=== PATIENT | male | born 1990 | race African-American/Black ===

== ENCOUNTER 2023-02-06 10:24 | Emergency (ER) | payer OTHER, SELFPAY ==
[2023-02-06 10:27] VITALS: BP 120/72; PULSE 88; RESP 20; TEMP 37.2; O2SAT 99
[2023-02-06] MEDS: Breeza Beverage 473 ML BTL 946 ML PO ×2 (10:49→14:51)
[2023-02-06] MEDS: Omnipaque 350 MG/ML 50 ML BTL PO ×2 (10:50→14:52)
--- NOTE | 2023-02-06 11:00 | DI.CT_ITS ---
Exam(s) CT ABDOMEN PELVIS WO CT ABDOMEN PELVIS W EXAM: CT ABDOMEN PELVIS W CLINICAL HISTORY: abd pain , no bm, vomitting. TECHNIQUE: Imaging Protocol: Axial computed tomography images with coronal and sagittal reformatted images were created and reviewed CONTRAST MATERIAL: Intravenous: Omnipaque-350 100cc Oral: Yes. Oral contrast was administered for bowel opacification. COMPARISON: CT CT ABDOMEN PELVIS WO from 02/06/2023 FINDINGS: VISUALIZED LUNG BASES: No nodules nor pleural effusions evident. ABDOMEN: There is no ascites. LIVER: There are no focal hepatic lesions evident. No dilated intrahepatic ducts. GALLBLADDER/BILIARY: No obvious gallbladder pathology. CBD is not dilated. PANCREAS: Partially obscured by adjacent small bowel loops. No evidence of obvious pancreatic mass n or dilatation of the pancreatic duct. No peripancreatic fluid collections. SPLEEN: Spleen is not enlarged. No obvious intrasplenic lesions. Splenic and portal veins are paten t. ADRENALS: There are no significant adrenal masses. KIDNEYS:No cysts evident. No solid renal masses. No calculi nor hydronephrosis.. ABDOMINAL AORTA: Abdominal aorta is not enlarged. LYMPH NODES:There is no retroperitoneal nor paraaortic adenopathy. ABDOMINAL WALL: No evidence of significant anterior abdominal wall nor inguinal hernia. GI: There is no evidence of bowel obstruction, free air, nor abscess. PELVIS: GI: No evidence of appendicitis.There is a small area in the sigmoid which appears contracted and dif ficult to evaluate.There is abundant fecal material in the colon above this level. LYMPH NODES: There is no intrapelvic nor inguinal adenopathy. REPRODUCTIVE: Prostate size is normal. URINARY BLADDER: No calculi nor obvious masses evident OSSEOUS: No fractures and no significant osseous lesions. IMPRESSION: 1. There is no evidence of small-bowel obstruction, free air, nor abscess. No evidence of appendiciti s. No diverticulitis.. 2. There is abundant fecal material in the colon. There appears to be area of subtle abnormal mural t hickening of a bowel loop in the lower central abdomen, difficult to determine if this is the upper r ectosigmoid or an adjacent small bowel loop. There is no evidence of obvious small bowel obstruction. There is, however, abundant fecal material in the colon above this level and a paucity of fecal mate rial in the rectosigmoid below this level. Recommend follow-up colonoscopy and small-bowel follow-thr ough barium examination. Discussed by phone with ER provider. RADIATION DOSE DELIVERED: 579.03mGy.cm Total DLP DATA REPOSITORY: All CT scans at this facility are submitted to the National Radiology Data Registry (NRDR) Dose Index Registry (DIR) with the [employer] (A[employer]). RADIATION OPTIMIZATION: All CT scans at this facility use at least one of these dose optimization te chniques: automated exposure control; mA and/or kV adjustment per patient size (includes targeted exa ms where dose is matched to clinical indication); or iterative reconstruction.
[2023-02-06 11:05] LABS: Abs Immature Grans 0.01 10^3/uL (0.0-0.06); Absolute Basophil Count 0.02 10^3/uL (0.0-0.2); Absolute Eosinophil Count 0.03 10^3/uL (0.0-0.7); Absolute Lymphocyte Count 1.94 10^3/uL (1.2-3.4); Absolute Monocyte Count 0.43 10^3/uL (0.1-0.8); Absolute Neutrophil Count 1.76 10^3/uL (1.2-6.7); Basophils % 0.5; Eosinophils % 0.7; HCT 40.8 % (40.0-50.0); HGB 13.8 g/dL (13.5-17.5); Immature Grans % 0.2; Lymphocytes % 46.3; MCH 28.8 pg (27.0-33.0); MCHC 33.8 % (32.0-36.0); MCV 85 fL (80-95); MPV 9.9 fL (8.0-11.0); Monocytes % 10.3; Platelet Count 189 10^3/uL (130-400); RBC 4.79 10^6/uL (4.36-5.78); RDW 12.3 % (11.8-14.1); RDW-SD 38.3 fL; WBC 4.19 10^3/uL (4.4-10.8)
[2023-02-06] MEDS: Normal Saline 1,000 ML 1000 ML IV (11:09)
[2023-02-06] MEDS: Ondansetron 4 MG/2 ML VIAL IVP ×2 (11:09→14:29)
[2023-02-06] MEDS: Ketorolac 15 MG/ML VIAL IVP (11:09)
[2023-02-06 11:20] LABS: ALT 26 U/L (16-63); AST 16 U/L (15-37); Albumin 4.5 g/dL (3.4-5.0); Alkaline Phosphatase 44 U/L (46-116); Anion Gap 9.9 mmol/L (3-11); BUN 8 mg/dL (7-18); Bilirubin, Total 1.2 mg/dL (0.2-1.0); CO2 29.1 mmol/L (21.0-32.0); Calcium 9.3 mg/dL (8.5-10.1); Chloride 98 mmol/L (98-107); Estimated GFR 101.28 (mL/min/1.73m2); Glucose 124 mg/dL (74-106); Lipase 13 U/L (16-77); Potassium 3.7 mmol/L (3.5-5.1); Sodium 137 mmol/L (136-145); Total Protein 8.4 g/dL (6.4-8.2)
[2023-02-06 11:24] LABS: Bilirubin Negative (Negative); Blood Negative (Negative); Clarity Clear (Clear); Glucose Negative (Negative); Ketones 40 mg/dL (Negative); Leukocyte Esterase Negative (Negative); Nitrite Negative (Negative); pH 6.5 (5-8)
--- NOTE | 2023-02-06 11:32 | ED.GENADUL_ITS ---
Discharge Plan Disposition Patient Disposition: Home Condition: Stable Discharge Details Clinical Impression: Constipation, Abdominal pain Primary Care Provider: Kathy,Local ED Provider: Goldie Ribeiro Home Meds and New Rx's Prescriptions: New polyethylene glycol 3350 [Miralax] 17 gram/dose powder 17 g PO DAILY PRN (Reason: constipation) Qty: 119 0RF Rx Instructions: Mix 1 packet or 17 g in 8 ounces of fluid once daily as needed until stool production. Please stop if diarrhea occurs. No Action penicillin V potassium 500 MG tablet 500 mg PO QID Qty: 28 0RF ibuprofen 800 MG tablet 800 mg PO TID Qty: 21 0RF insulin lispro [Humalog U-100 Insulin] 100 unit/mL solution See Rx Instructions .ROUTE .COMPLEX Rx Instructions: subcutaneously via insulin pump Discharge Instructions Instructions: Constipation (ED), Abdominal Pain (ED) Additional Instructions: CT shows constipation. You do have some thickening of the intestinal wall which can be a sign of a stomach virus. Please take the medication as directed. Increase oral fluids. You may also try high-fiber foods such as prunes. Please take Tylenol or Ibuprofen with food every 4-6 hours as needed for pain and swelling. Follow up with primary care provider in 3-5 days. Return to ED sooner if any worsening or concerns. Increase oral fluids. Discharge Data Discharge Date/Time-TO BE ENTERED AT DEPARTURE: 02/06/23 17:53 Medical Decision Making <Truman Meza NP - Last Filed: 02/08/23 15:48> Patient presenting to the emergency department for chief complaint of abdominal pain, constipation, nausea vomiting. Patient does report previous history is of constipation in the past but never with nausea vomiting and belly pain. Patient states that his blood sugars have been well controlled as he has a diagnosis of type 1 diabetes otherwise has no other past medical history and takes no other medications. Physical exam shows soft abdomen with hypoactive bowel sounds, there is tenderness to the epigastrium and left upper quadrant, otherwise unremarkable exam. I am concerned given that patient is having nausea and vomiting with abdominal pain that there could be more than simple constipation. We will check patient's labs and perform CT imaging. Patient is very thin so we will perform with contrast. Pending results we will give patient Zofran, ketorolac, and IV fluids Review of patient's labs show an unremarkable CBC, normal lactate, CMP does show slight elevation of glucose 124, bilirubin is slightly elevated at 1.2, low alk phos, high protein and low lipase. Patient still pending urinalysis and CT scan. Based on these nondiagnostic lab results though at this time I do not feel that any further interventions are needed. Urinalysis was reviewed and did show some urine ketones and urobilinogen otherwise unremarkable. Spoke to radiologist in regards to CT imaging which does show significant amount of stool but radiologist was concerned due to not being able to fully visualize contrast in the sigmoid aspect of the colon. He requested patient to have more oral contrast and repeat scan. Patient is agreeable to this. Patient did state some increased nausea so more Zofran was ordered. This spoke to radiologist who did state that there does seem to be still a sigmoid abnormality in the upper portion but does feel that this is can be followed up on outpatient from a surgical perspective. We will give patient mag citrate and see if that helps resolve some of his constipation otherwise will consider enema. Patient signed out to Ailyn Ribeiro NP for reassessment post mag citrate and enema if needed. Lab Data Lab results reviewed: Yes I reviewed the patient's lab results. <Goldie Ribeiro NP - Last Filed: 02/06/23 17:49> Patient presenting to the emergency department for chief complaint of abdominal pain, constipation, nausea vomiting. Patient does report previous history is of constipation in the past but never with nausea vomiting and belly pain. Patient states that his blood sugars have been well controlled as he has a diagnosis of type 1 diabetes otherwise has no other past medical history and takes no other medications. Physical exam shows soft abdomen with hypoactive bowel sounds, there is tenderness to the epigastrium and left upper quadrant, otherwise unremarkable exam. I am concerned given that patient is having nausea and vomiting with abdominal pain that there could be more than simple constipation. We will check patient's labs and perform CT imaging. Patient is very thin so we will perform with contrast. Pending results we will give patient Zofran, ketorolac, and IV fluids Review of patient's labs show an unremarkable CBC, normal lactate, CMP does show slight elevation of glucose 124, bilirubin is slightly elevated at 1.2, low alk phos, high protein and low lipase. Patient still pending urinalysis and CT scan. Based on these nondiagnostic lab results though at this time I do not feel that any further interventions are needed. Urinalysis was reviewed and did show some urine ketones and urobilinogen otherwise unremarkable. Spoke to radiologist in regards to CT imaging which does show significant amount of stool but radiologist was concerned due to not being able to fully visualize contrast in the sigmoid aspect of the colon. He requested patient to have more oral contrast and repeat scan. Patient is agreeable to this. Patient did state some increased nausea so more Zofran was ordered. This spoke to radiologist who did state that there does seem to be still a sigmoid abnormality in the upper portion but does feel that this is can be followed up on outpatient from a surgical perspective. We will give patient mag citrate and see if that helps resolve some of his constipation otherwise will consider enema. Patient signed out to Ailyn Ribeiro NP for reassessment post mag citrate and enema if needed. 1615: SJ: Care assumed from provider (Tal Meza NP) Please see their initial HPI, PE, and documentation. Discussed patient details and case and pending workup and disposition. Patient is hemodynamically stable, and alert and oriented. At the time of signout awaiting results from magnesium citrate, and disposition. If mag citrate is unsuccessful we will consider an enema. 1705: No bowel production with mag citrate, will give a soapsuds enema. 1749: On patient reevaluation he reports he has no more abdominal pain. I did discuss CT results with him and home care he is here for a week has a PCP in [facility]. I did encourage him to follow-up if he or return if he has any worsening pain. He verbalizes understanding. This text was generated using [employer] system, please disregard any oddities of phrase or misspellings. Medical Records Medical records reviewed: Yes I reviewed the patient's medical records. Imaging Data Radiologic Study: Imaging: CT Scan Radiologist's impression: Laboratory Tests Range/Units 02/06/23 02/06/23 02/06/23 10:53 10:53 11:00 WBC (4.4-10.8) 10^3/uL 4.19 L RBC (4.36-5.78) 10^6/uL 4.79 Hgb (13.5-17.5) g/dL 13.8 Hct (40.0-50.0) % 40.8 MCV (80-95) fL 85 MCH (27.0-33.0) pg 28.8 MCHC (32.0-36.0) % 33.8 RDW (11.8-14.1) % 12.3 Plt Count (130-400) 10^3/uL 189 MPV (8.0-11.0) fL 9.9 Immature Gran % 0.2 Neutrophils % 42.0 Lymphocytes % 46.3 Monocytes % 10.3 Eosinophils % 0.7 Basophils % 0.5 Nucleated RBC % (0.0-0.3) % 0.0 Absolute Neutrophils (1.2-6.7) 10^3/uL 1.76 Absolute Lymphocytes (1.2-3.4) 10^3/uL 1.94 Absolute Monocytes (0.1-0.8) 10^3/uL 0.43 Absolute Eosinophils (0.0-0.7) 10^3/uL 0.03 Absolute Basophils (0.0-0.2) 10^3/uL 0.02 VBG Lactate (0.9-1.7) MMOL/l 1.0 Sodium (136-145) mmol/L 137 Potassium (3.5-5.1) mmol/L 3.7 Chloride (98-107) mmol/L 98 Carbon Dioxide (21.0-32.0) mmol/L 29.1 Anion Gap (3-11) mmol/L 9.9 BUN (7-18) mg/dL 8 Creatinine (0.70-1.30) mg/dL 1.0 Est GFR (CKD-EPI 2020) (mL/min/1.73m2) 101.28 Glucose (74-106) mg/dL 124 H Calcium (8.5-10.1) mg/dL 9.3 Magnesium (1.8-2.4) mg/dL 2.0 Total Bilirubin (0.2-1.0) mg/dL 1.2 H AST (15-37) U/L 16 ALT (16-63) U/L 26 Alkaline Phosphatase (46-116) U/L 44 L Total Protein (6.4-8.2) g/dL 8.4 H Albumin (3.4-5.0) g/dL 4.5 Lipase (16-77) U/L 13 L Urine Color (Yellow) Urine Clarity (Clear) Urine pH (5-8) Ur Specific [place] (1.005-1.025) Urine Protein (Negative) mg/dL Urine Ketones (Negative) mg/dL Urine Blood (Negative) Urine Nitrite (Negative) Urine Bilirubin (Negative) Urine Urobilinogen (Up to 0.2) mg/dL Ur Leukocyte Esterase (Negative) Urine Glucose (Negative) mg/dL Range/Units 02/06/23 11:06 WBC (4.4-10.8) 10^3/uL RBC (4.36-5.78) 10^6/uL Hgb (13.5-17.5) g/dL Hct (40.0-50.0) % MCV (80-95) fL MCH (27.0-33.0) pg MCHC (32.0-36.0) % RDW (11.8-14.1) % Plt Count (130-400) 10^3/uL MPV (8.0-11.0) fL Immature Gran % Neutrophils % Lymphocytes % Monocytes % Eosinophils % Basophils % Nucleated RBC % (0.0-0.3) % Absolute Neutrophils (1.2-6.7) 10^3/uL Absolute Lymphocytes (1.2-3.4) 10^3/uL Absolute Monocytes (0.1-0.8) 10^3/uL Absolute Eosinophils (0.0-0.7) 10^3/uL Absolute Basophils (0.0-0.2) 10^3/uL VBG Lactate (0.9-1.7) MMOL/l Sodium (136-145) mmol/L Potassium (3.5-5.1) mmol/L Chloride (98-107) mmol/L Carbon Dioxide (21.0-32.0) mmol/L Anion Gap (3-11) mmol/L BUN (7-18) mg/dL Creatinine (0.70-1.30) mg/dL Est GFR (CKD-EPI 2020) (mL/min/1.73m2) Glucose (74-106) mg/dL Calcium (8.5-10.1) mg/dL Magnesium (1.8-2.4) mg/dL Total Bilirubin (0.2-1.0) mg/dL AST (15-37) U/L ALT (16-63) U/L Alkaline Phosphatase (46-116) U/L Total Protein (6.4-8.2) g/dL Albumin (3.4-5.0) g/dL Lipase (16-77) U/L Urine Color (Yellow) Yellow Urine Clarity (Clear) Clear Urine pH (5-8) 6.5 Ur Specific [place] (1.005-1.025) 1.010 Urine Protein (Negative) mg/dL Negative Urine Ketones (Negative) mg/dL 40 H Urine Blood (Negative) Negative Urine Nitrite (Negative) Negative Urine Bilirubin (Negative) Negative Urine Urobilinogen (Up to 0.2) mg/dL 4.0 H Ur Leukocyte Esterase (Negative) Negative Urine Glucose (Negative) mg/dL Negative Lab Data Lab results reviewed: Yes I reviewed the patient's lab results. Labs: Laboratory Tests Range/Units 02/06/23 02/06/23 02/06/23 10:53 10:53 11:00 WBC (4.4-10.8) 10^3/uL 4.19 L RBC (4.36-5.78) 10^6/uL 4.79 Hgb (13.5-17.5) g/dL 13.8 Hct (40.0-50.0) % 40.8 MCV (80-95) fL 85 MCH (27.0-33.0) pg 28.8 MCHC (32.0-36.0) % 33.8 RDW (11.8-14.1) % 12.3 Plt Count (130-400) 10^3/uL 189 MPV (8.0-11.0) fL 9.9 Immature Gran % 0.2 Neutrophils % 42.0 Lymphocytes % 46.3 Monocytes % 10.3 Eosinophils % 0.7 Basophils % 0.5 Nucleated RBC % (0.0-0.3) % 0.0 Absolute Neutrophils (1.2-6.7) 10^3/uL 1.76 Absolute Lymphocytes (1.2-3.4) 10^3/uL 1.94 Absolute Monocytes (0.1-0.8) 10^3/uL 0.43 Absolute Eosinophils (0.0-0.7) 10^3/uL 0.03 Absolute Basophils (0.0-0.2) 10^3/uL 0.02 VBG Lactate (0.9-1.7) MMOL/l 1.0 Sodium (136-145) mmol/L 137 Potassium (3.5-5.1) mmol/L 3.7 Chloride (98-107) mmol/L 98 Carbon Dioxide (21.0-32.0) mmol/L 29.1 Anion Gap (3-11) mmol/L 9.9 BUN (7-18) mg/dL 8 Creatinine (0.70-1.30) mg/dL 1.0 Est GFR (CKD-EPI 2020) (mL/min/1.73m2) 101.28 Glucose (74-106) mg/dL 124 H Calcium (8.5-10.1) mg/dL 9.3 Magnesium (1.8-2.4) mg/dL 2.0 Total Bilirubin (0.2-1.0) mg/dL 1.2 H AST (15-37) U/L 16 ALT (16-63) U/L 26 Alkaline Phosphatase (46-116) U/L 44 L Total Protein (6.4-8.2) g/dL 8.4 H Albumin (3.4-5.0) g/dL 4.5 Lipase (16-77) U/L 13 L Urine Color (Yellow) Urine Clarity (Clear) Urine pH (5-8) Ur Specific [place] (1.005-1.025) Urine Protein (Negative) mg/dL Urine Ketones (Negative) mg/dL Urine Blood (Negative) Urine Nitrite (Negative) Urine Bilirubin (Negative) Urine Urobilinogen (Up to 0.2) mg/dL Ur Leukocyte Esterase (Negative) Urine Glucose (Negative) mg/dL Range/Units 02/06/23 11:06 WBC (4.4-10.8) 10^3/uL RBC (4.36-5.78) 10^6/uL Hgb (13.5-17.5) g/dL Hct (40.0-50.0) % MCV (80-95) fL MCH (27.0-33.0) pg MCHC (32.0-36.0) % RDW (11.8-14.1) % Plt Count (130-400) 10^3/uL MPV (8.0-11.0) fL Immature Gran % Neutrophils % Lymphocytes % Monocytes % Eosinophils % Basophils % Nucleated RBC % (0.0-0.3) % Absolute Neutrophils (1.2-6.7) 10^3/uL Absolute Lymphocytes (1.2-3.4) 10^3/uL Absolute Monocytes (0.1-0.8) 10^3/uL Absolute Eosinophils (0.0-0.7) 10^3/uL Absolute Basophils (0.0-0.2) 10^3/uL VBG Lactate (0.9-1.7) MMOL/l Sodium (136-145) mmol/L Potassium (3.5-5.1) mmol/L Chloride (98-107) mmol/L Carbon Dioxide (21.0-32.0) mmol/L Anion Gap (3-11) mmol/L BUN (7-18) mg/dL Creatinine (0.70-1.30) mg/dL Est GFR (CKD-EPI 2020) (mL/min/1.73m2) Glucose (74-106) mg/dL Calcium (8.5-10.1) mg/dL Magnesium (1.8-2.4) mg/dL Total Bilirubin (0.2-1.0) mg/dL AST (15-37) U/L ALT (16-63) U/L Alkaline Phosphatase (46-116) U/L Total Protein (6.4-8.2) g/dL Albumin (3.4-5.0) g/dL Lipase (16-77) U/L Urine Color (Yellow) Yellow Urine Clarity (Clear) Clear Urine pH (5-8) 6.5 Ur Specific [place] (1.005-1.025) 1.010 Urine Protein (Negative) mg/dL Negative Urine Ketones (Negative) mg/dL 40 H Urine Blood (Negative) Negative Urine Nitrite (Negative) Negative Urine Bilirubin (Negative) Negative Urine Urobilinogen (Up to 0.2) mg/dL 4.0 H Ur Leukocyte Esterase (Negative) Negative Urine Glucose (Negative) mg/dL Negative HPI <Truman Meza NP - Last Filed: 02/08/23 15:48> General Mode of arrival: ambulatory . Date/Time Provider Initiated Documentation: 02/06/23 10:34 . Limitations to Documentation: no limitations . Information obtained by: patient and RN notes reviewed . History of Present Illness 32 year old M presents to the emergency department with the chief complaint of Abdominal pain, constipation, nausea vomiting, described as moderate and similar to prior episodes, Quality is described as aching, and is localized to the abdomen. Patient started experiencing this day(s) (5) and it has been constant. No relieving factors improve symptom(s), No exacerbating factors reported . Patient did receive the following treatments prior to arrival, other ([id number] MiraLAX) Related Data Home Medications Medication Instructions Recorded Confirmed ibuprofen 800 mg tablet 800 mg PO TID #21 tabs 02/12/15 penicillin V potassium 500 mg 500 mg PO QID ##28 02/12/15 tablet insulin lispro 100 unit/mL See Rx Instructions .Route .COMPLEX 02/06/23 02/06/23 subcutaneous solution (Humalog U-100 Insulin) polyethylene glycol 3350 17 17 g PO DAILY PRN constipation 02/06/23 gram/dose oral powder (Miralax) #119 grams Previous Rx's Medication Instructions Recorded ibuprofen 800 mg tablet 800 mg PO TID #21 tabs 02/12/15 penicillin V potassium 500 mg 500 mg PO QID ##28 02/12/15 tablet polyethylene glycol 3350 17 17 g PO DAILY PRN constipation 02/06/23 gram/dose oral powder (Miralax) #119 grams Allergies Allergy/AdvReac Type Severity Reaction Status Date / Time No Known Allergies Allergy Unverified 02/06/23 10:31 General Stated Complaint: Abd Prob ROBBY: 3 Review of Systems <Truman Meza NP - Last Filed: 02/08/23 15:48> Constitutional Constitutional: Denies chills, Denies fever(s), Denies headache(s) and Reports malaise ENT Ears, Nose, Mouth, and Throat: Denies headache(s) Cardiovascular Cardiovascular: Denies chest pain and Denies dyspnea Respiratory Respiratory: Denies cough and Denies dyspnea Gastrointestinal Gastrointestinal: Reports as per HPI, Reports abdominal pain, Denies melena, Denies change in bowel habits, Reports constipation, Denies diarrhea, Reports nausea and Reports vomiting Genitourinary Genitourinary: Denies hematuria, Denies difficulty urinating, Denies urinary hesitancy, Denies urinary incontinence and Denies urinary urgency Integumentary/Breasts Skin/Breast: Denies rash Neurologic Neurologic: Denies headache(s) PFSH <Truman Meza NP - Last Filed: 02/08/23 15:48> All Active Problems (Updated 02/06/23 @ 17:36 by Goldie Ribeiro NP) Constipation (Acute) Abdominal pain (Acute) Type 1 diabetes (Acute) Social History Smoking/Tobacco Use Status: Current-Occasional Smoking risk assessment performed?: Yes Alcohol Intake: current Alcohol Intake frequency: a few times a week Alcohol type: wine Drug use: Never Substance use type: marijuana Housing: other Do you feel safe at home: Yes Do you feel safe in your relationship?: Yes Additional Social history: 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 Exam <Truman Meza NP - Last Filed: 02/08/23 15:48> Const General: cooperative Orientation: alert, awake and oriented x3 Resp Effort & Inspection: normal respiratory effort and able to speak in complete sentences Auscultation: clear to auscultation bilaterally Cardio Rate: regular rate Rhythm: regular rhythm Heart Sounds: S1 normal and S2 normal GI Palpation: soft, no hepatosplenomegaly, not firm, no guarding, no masses, no pulsatile masses, not rigid, no splenomegaly and tender in the epigastrum and in the LUQ Auscultation: hypoactive bowel sounds Back/Spine/Pelvis Back: no CVA tenderness Neuro General: patient alert, patient awake, patient oriented x3, gait normal and moves all extremities Course <Truman Meza NP - Last Filed: 02/08/23 15:48> Vital Signs Vital signs: Vital Signs Temperature 37.2 C 02/06/23 10:27 Pulse 88 02/06/23 10:27 Respiratory Rate 20 02/06/23 10:27 Blood Pressure 120/72 02/06/23 10:27 Pulse Oximetry 99 02/06/23 10:27 Temperature 37.2 C 02/06/23 10:27 Temperature Source Skin 02/06/23 10:27 Pulse 88 02/06/23 10:27 Respiratory Rate 20 02/06/23 10:27 Respiratory Effort Normal, Non-Labored 02/06/23 11:17 Blood Pressure 120/72 02/06/23 10:27 Blood Pressure Position Sitting 02/06/23 10:27 Pulse Oximetry 99 02/06/23 10:27 Oxygen Delivery Method Room Air 02/06/23 10:27 Oxygen Flow Rate 0 02/06/23 10:27 Pain Level 7 02/06/23 11:17 Lab/Test Results Lab/Test Results: Laboratory Tests Range/Units 02/06/23 02/06/23 02/06/23 10:53 10:53 11:00 WBC (4.4-10.8) 10^3/uL 4.19 L RBC (4.36-5.78) 10^6/uL 4.79 Hgb (13.5-17.5) g/dL 13.8 Hct (40.0-50.0) % 40.8 MCV (80-95) fL 85 MCH (27.0-33.0) pg 28.8 MCHC (32.0-36.0) % 33.8 RDW (11.8-14.1) % 12.3 Plt Count (130-400) 10^3/uL 189 MPV (8.0-11.0) fL 9.9 Immature Gran % 0.2 Neutrophils % 42.0 Lymphocytes % 46.3 Monocytes % 10.3 Eosinophils % 0.7 Basophils % 0.5 Nucleated RBC % (0.0-0.3) % 0.0 Absolute Neutrophils (1.2-6.7) 10^3/uL 1.76 Absolute Lymphocytes (1.2-3.4) 10^3/uL 1.94 Absolute Monocytes (0.1-0.8) 10^3/uL 0.43 Absolute Eosinophils (0.0-0.7) 10^3/uL 0.03 Absolute Basophils (0.0-0.2) 10^3/uL 0.02 VBG Lactate (0.9-1.7) MMOL/l 1.0 Sodium (136-145) mmol/L 137 Potassium (3.5-5.1) mmol/L 3.7 Chloride (98-107) mmol/L 98 Carbon Dioxide (21.0-32.0) mmol/L 29.1 Anion Gap (3-11) mmol/L 9.9 BUN (7-18) mg/dL 8 Creatinine (0.70-1.30) mg/dL 1.0 Est GFR (CKD-EPI 2020) (mL/min/1.73m2) 101.28 Glucose (74-106) mg/dL 124 H Calcium (8.5-10.1) mg/dL 9.3 Magnesium (1.8-2.4) mg/dL 2.0 Total Bilirubin (0.2-1.0) mg/dL 1.2 H AST (15-37) U/L 16 ALT (16-63) U/L 26 Alkaline Phosphatase (46-116) U/L 44 L Total Protein (6.4-8.2) g/dL 8.4 H Albumin (3.4-5.0) g/dL 4.5 Lipase (16-77) U/L 13 L Sign Out <Truman Meza NP - Last Filed: 02/08/23 15:48> Sign Out Data: Sign Out Comment: Patient pending reassessment after mag citrate with also consideration of enema if patient does not have adequate bowel movement. Last updated by Truman Meza NP at 02/06/23 16:09 PAWSS <Truman Meza NP - Last Filed: 02/08/23 15:48> Have you Been Recently Intoxicated or Drunk Within the Last 30 days?: No Have you Ever Experienced Previous Episodes of Alcohol Withdrawal?: No Have you ever Experienced Withdrawal Seizures?: No Have you ever Experienced Delirium Tremens(DT)s?: No Have you ever undergone Alcohol Rehabilitation Treatment (i.e, inpt ot outpatient treatment programs)?: No Have you ever Experienced Blackouts?: No Have you ever Combined Alcohol with other Downers within the last 90 days?: No Have you ever Combined Alcohol with any other Substance of Abuse during the last 90 days?: No Positive Blood Alcohol level on Presentation? [PCS.BAL]: No Evidence of Increased Autonomic Activity (i.e. HR>120, tremor, sweating, agitation, nausea)?: No Result: 0 <Goldie Ribeiro NP - Last Filed: 02/06/23 17:49> Result: 0
[2023-02-06 12:22] VITALS: O2SAT 94
[2023-02-06 12:23] VITALS: BP 146/98; PULSE 67
[2023-02-06 12:24] VITALS: TEMP 37.5
[2023-02-06] MEDS: Normal Saline - Diluent 50 ML VIAL IJ (13:02)
[2023-02-06] MEDS: Omnipaque 350 MG/ML 100 ML BTL IJ (13:03)
[2023-02-06 14:34] VITALS: BP 152/98; PULSE 57; RESP 14; TEMP 36.7; O2SAT 99
[2023-02-06] MEDS: Magnesium Citrate 300 ML BTL PO (15:48)
--- NOTE | 2023-02-06 17:41 | NUR.NOTE ---
Referral made to care management to establish care with a PCP per Goldie Ribeiro. Put the referral in the out of school hours care worker's box for follow up assistance. Nursing Note:
[2023-02-06 17:51] VITALS: BP 152/98; PULSE 65; RESP 14; TEMP 36.7; O2SAT 99
== END 2023-02-06 17:53 | disposition home or self-care (01) ==
PROVIDERS: Nurse Practitioner Family; Emergency Provider Registered Nurse Emergency
DX: R10.30 Lower abdominal pain, unspecified (principal); K59.00 Constipation, unspecified; E10.9 Type 1 diabetes mellitus without complications
CPT/HCPCS: 36415; 80053; 82962; 83690; 96361; 96374; 96375; 96376; 99285; 74176; 74177; 81003; 83605; 83735; 85025; 99284; J1885; J2405; J3490; Q9967